=== PATIENT | female | born 1995 | race Caucasian/White ===

== ENCOUNTER 2016-09-30 17:30 | Emergency (ER) | payer OTHER ==
[2016-09-30 17:48] VITALS: BP 149/72; PULSE 95; TEMP 98.1; BMI 27.3
--- NOTE | 2016-09-30 17:57 | PDOC ---
History of Present Illness - General Chief Complaint: Psychiatric Stated Complaint: DEPRESSION/SUICIDAL Time Seen by Provider: 09/30/16 17:47 Past History - Past Medical History Allergies/Adverse Reactions: Allergies fish derived Allergy (Verified 09/30/16 18:18) Itching Penicillins Allergy (Verified 09/30/16 18:18) Difficulty Breathing vancomycin Allergy (Verified 09/30/16 18:18) Difficulty Breathing Home Medications: Ambulatory Orders NK [No Known Home Medication] 07/18/16 - Immunization History Tetanus Status: Unknown - Social History Smoking Status: Never smoked *Physical Exam - Vital Signs Last Vital Signs Temp Pulse Resp BP Pulse Ox 98.1 F 95 H 20 149/72 100 09/30/16 17:39 09/30/16 17:39 09/30/16 17:39 09/30/16 17:39 09/30/16 17:39 *DC/Admit/Observation/Transfer Diagnosis at time of Disposition: Depression - Discharge Dispostion Disposition: HOME Condition at time of disposition: Stable - Referrals Referrals: Marti Conteh MD [Primary Care Provider] - - Patient Instructions Printed Discharge Instructions: Depression Additional Instructions: Please follow-up with your PMD for referral to a psychiatrist. If suicidal thoughts return report to ED immediately
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
== END 2016-09-30 18:22 | disposition home or self-care (01) ==
LOC: JER 17:30
DX: F32.9 Major depressive disorder, single episode, unspecified (principal)
CPT/HCPCS: 99282-25

== ENCOUNTER 2016-10-21 01:54 | Emergency (ER) | payer OTHER ==
[2016-10-21 02:18] VITALS: BP 131/76; PULSE 100; TEMP 98; BMI 24.7
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
== END 2016-10-21 03:54 | disposition home or self-care (01) ==
LOC: JER 01:54
DX: S61.512A Laceration without foreign body of left wrist, initial encounter (principal); X78.8XXA Intentional self-harm by other sharp object, initial encounter; Y93.89 Activity, other specified; Y92.9 Unspecified place or not applicable
CPT/HCPCS: 99281-25

== ENCOUNTER 2016-10-23 18:33 | Emergency (ER) | payer OTHER ==
[2016-10-23 18:49] VITALS: BP 120/61; PULSE 97; TEMP 98; BMI 26.4
--- NOTE | 2016-10-23 19:36 | PDOC ---
Suture Removal/Wound Check HPI - History of Present Illness Chief Complaint: Revisit,Wound Recheck Stated Complaint: SUTURE REMOVAL Time Seen by Provider: 10/23/16 19:25 History Source: Yes: Patient Treated at: [facility] Date of Last ED visit: 10/21/16 - Previous ED Treatment Type of procedure performed on last visit: Yes: Laceration Repair Past History - Past Medical History Allergies/Adverse Reactions: Allergies fish derived Allergy (Verified 10/23/16 18:49) Itching Penicillins Allergy (Verified 10/23/16 18:49) Difficulty Breathing vancomycin Allergy (Verified 10/23/16 18:49) Difficulty Breathing Home Medications: Ambulatory Orders NK [No Known Home Medication] 07/18/16 - Immunization History Immunizations Up to Date: Yes (2012) Tetanus Status: Unknown - Social History Smoking Status: Smoker current status UNK Suture Removal/Wound Check PE - Physical Exam Laceration/Wound Check Symptoms: reports: Pain. denies: Fever, Chills, Redness Current Severity Level: Mild Location of Laceration/Wound: left: Wrist (well healign lac to L wrist, no s/o infxn) *Review of Systems - Review of Systems Constitutional: No: Chills, Fever Integumentary: No: Erythema Medical Decision Making - Medical Decision Making 10/23/16 19:29 21 yo F, seen in ED 2 days ago for lac repair to L wrist and now here for wound check. Denies sig pain and no redness, f/c. Wound appears well healing. Dc w/ f/ u in 8 days for suture removal 10/23/16 19:31 10/23/16 19:36 *DC/Admit/Observation/Transfer Diagnosis at time of Disposition: Visit for wound check - Discharge Dispostion Disposition: HOME Condition at time of disposition: Good - Patient Instructions Additional Instructions: Return for suture removal in 8 days
== END 2016-10-23 19:36 | disposition home or self-care (01) ==
LOC: JERFT 18:33
DX: Z09 Encounter for follow-up examination after completed treatment for conditions other than malignant neoplasm (principal)
CPT/HCPCS: 99281-25

== ENCOUNTER 2016-10-31 20:28 | Emergency (ER) | payer OTHER ==
[2016-10-31 20:41] VITALS: BP 111/77; PULSE 104; TEMP 98.1; BMI 26.4
--- NOTE | 2016-10-31 21:20 | PDOC ---
Suture Removal/Wound Check HPI - History of Present Illness Chief Complaint: Suture/Staple Removal(Here) Stated Complaint: STITCHES REMOVAL Time Seen by Provider: 10/31/16 21:09 History Source: Yes: Patient Exam Limitations: Yes: No Limitations Treated at: [facility] ED Date of Last ED visit: 10/21/16 - Previous ED Treatment Type of procedure performed on last visit: Yes: Laceration Repair Past History - Past Medical History Allergies/Adverse Reactions: Allergies fish derived Allergy (Verified 10/31/16 20:37) Itching Penicillins Allergy (Verified 10/31/16 20:37) Difficulty Breathing vancomycin Allergy (Verified 10/31/16 20:37) Difficulty Breathing Home Medications: Ambulatory Orders Pnv95/Ferrous Fumarate/FA [ Caplet] 1 each PO DAILY 10/31/16 General: Yes: no pertinent history - Immunization History Immunizations Up to Date: Yes (2012) Tetanus Status: Unknown - Social History Smoking Status: Never smoked Suture Removal/Wound Check PE - Physical Exam Laceration/Wound Check Symptoms: reports: None Comments: 10/31/16 21:20 left inner wrist with well healed laceration, simple interrupted sutures removed without diffuculty Procedures - Additional Procedures Progress: 10/31/16 21:21 sutures removed 8 simple interrupted sutures removed Medical Decision Making - Medical Decision Making 10/31/16 21:21 suture removal *DC/Admit/Observation/Transfer Diagnosis at time of Disposition: Visit for suture removal - Discharge Dispostion Disposition: HOME Condition at time of disposition: Good - Referrals Referrals: Guilherme Benavidez MD [Primary Care Provider] - - Patient Instructions Printed Discharge Instructions: DI for Suture Removal Additional Instructions: keep clean and dry
== END 2016-10-31 21:38 | disposition home or self-care (01) ==
LOC: JERFT 20:28
DX: Z48.01 Encounter for change or removal of surgical wound dressing (principal)
CPT/HCPCS: 99281-25

== ENCOUNTER 2016-11-13 23:37 | Emergency (ER) | payer OTHER ==
--- NOTE | 2016-11-14 00:34 | PDOC ---
History of Present Illness - History of Present Illness Initial Comments: 11/14/16 01:51 The patient is a 21 year old female, , with a significant past medical history of molar s/p D&C (May 2016), who presents to the emergency department with nausea, vomiting, and suprapubic abdominal pain today. The patient states she saw her BELL SPINNER two days ago and had an ultrasound that was normal, however, her symptoms today are concerning her for another molar . The patient states her suprapubic pain radiates to her back. The patient also reports having two miscarriages in the past. She denies chest pain, shortness of breath, headache and dizziness. She denies fever, chills, diarrhea and constipation. She denies dysuria, frequency, urgency and hematuria. Allergies: vancomycin and penicillin BELL SPINNER: Dr. Marie <Mikaela Lopez - Last Filed: 11/14/16 02:38> <Lori Fonseca - Last Filed: 11/14/16 03:09> - General Chief Complaint: Pain, Acute Stated Complaint: ABDOMINAL PAIN/8 WKS Time Seen by Provider: 11/14/16 00:12 Past History <Mikaela Lopez - Last Filed: 11/14/16 02:38> - Past Medical History Anemia: No Asthma: No Cancer: No Cardiac Disorders: No CVA: No COPD: No CHF: No Dementia: No Diabetes: No GI Disorders: Yes (Gastritis) Disorders: No HTN: No Hypercholesterolemia: No Liver Disease: No Seizures: No Thyroid Disease: No - Surgical History Abdominal Surgery: Yes (pyloric stenosis) Appendectomy: No Cardiac Surgery: No Cholecystectomy: No Lung Surgery: No Neurologic Surgery: No Orthopedic Surgery: No - Immunization History Immunization Up to Date: Yes (2012) - Psycho/Social/Smoking Cessation Hx Anxiety: No Suicidal Ideation: No Smoking History: Never smoked Have you smoked in the past 12 months: No Hx Alcohol Use: No Drug/Substance Use Hx: No Substance Use Type: None Hx Substance Use Treatment: No <Lori Fonseca - Last Filed: 11/14/16 03:09> - Past Medical History Allergies/Adverse Reactions: Allergies Allergy/AdvReac Type Severity Reaction Status Date / Time fish derived Allergy Itching Verified 11/14/16 00:28 Penicillins Allergy Difficulty Verified 11/14/16 00:28 Breathing vancomycin Allergy Difficulty Verified 11/14/16 00:28 Breathing Home Medications: Ambulatory Orders Pnv95/Iron Fum/Folic Acid [ [place]] 1 each PO DAILY 10/31/16 Review of Systems - Review of Systems Able to Perform ROS?: Yes Comments:: 11/14/16 01:54 CONSTITUTIONAL: Absent: fever, chills, diaphoresis, generalized weakness, malaise, loss of appetite HEENT: Absent: rhinorrhea, nasal congestion, throat pain, throat swelling, difficulty swallowing, mouth swelling, ear pain, eye pain, visual Changes CARDIOVASCULAR: Absent: chest pain, syncope, palpitations, irregular heart rate, lightheadedness , peripheral edema RESPIRATORY: Absent: cough, shortness of breath, dyspnea with exertion, orthopnea, wheezing, stridor, hemoptysis GASTROINTESTINAL: (+) suprapubic abdominal pain, nausea, vomiting. Absent: abdominal distension, diarrhea, constipation, melena, hematochezia GENITOURINARY: Absent: dysuria, frequency, urgency, hesitancy, hematuria, flank pain, genital pain MUSCULOSKELETAL: Absent: myalgia, arthralgia, joint swelling SKIN: Absent: rash, itching, pallor HEMATOLOGIC/IMMUNOLOGIC: Absent: easy bleeding, easy bruising, lymphadenopathy, frequent infections ENDOCRINE: Absent: unexplained weight gain, unexplained weight loss, heat intolerance, cold intolerance NEUROLOGIC: Absent: headache, focal weakness or paresthesias, dizziness, unsteady gait, seizure, mental status changes, bladder or bowel incontinence PSYCHIATRIC: Absent: anxiety, depression, suicidal or homicidal ideation, hallucinations. <Mikaela Lopez - Last Filed: 11/14/16 02:38> *Physical Exam - Vital Signs Last Vital Signs Temp Pulse Resp BP Pulse Ox 98.6 F 93 H 18 107/62 98 11/14/16 00:29 11/14/16 00:29 11/14/16 00:29 11/14/16 00:29 11/14/16 00:29 - Physical Exam Comments: 11/14/16 01:55 GENERAL: Well developed, well nourished. Awake and alert. No acute distress. HEENT: Normocephalic, atraumatic. PERRLA, EOMI. No conjunctival pallor. Sclera are non- icteric. Moist mucous membranes. Oropharynx is clear. NECK: Supple. Full ROM. No JVD. Carotid pulses 2+ and symmetric, without bruits. No thyromegaly. No lymphadenopathy. CARDIOVASCULAR: Regular rate and rhythm. No murmurs, rubs, or gallops. Distal pulses are 2+ and symmetric. PULMONARY: No evidence of respiratory distress. Lungs clear to auscultation bilaterally. No wheezing, rales or rhonchi. ABDOMINAL: Soft. Non-tender. Non-distended. No rebound or guarding. No organomegaly. Normoactive bowel sounds. MUSCULOSKELETAL Normal range of motion at all joints. No bony deformities or tenderness. No CVA tenderness. EXTREMITIES: No cyanosis. No clubbing. No edema. No calf tenderness. SKIN: Warm and dry. Normal capillary refill. No rashes. No jaundice. NEUROLOGICAL: Alert, awake, appropriate. Cranial nerves 2-12 intact. Normoreflexic in the upper and lower extremities. Normal speech. Toes are down-going bilaterally. Gait is normal without ataxia. PSYCHIATRIC: Cooperative. Good eye contact. Appropriate mood and affect. <Mikaela Lopez - Last Filed: 11/14/16 02:38> - Vital Signs Last Vital Signs Temp Pulse Resp BP Pulse Ox 98.6 F 93 H 18 107/62 98 11/14/16 00:29 11/14/16 00:29 11/14/16 00:29 11/14/16 00:29 11/14/16 00:29 <Lori Fonseca - Last Filed: 11/14/16 03:09> ED Treatment Course - LABORATORY CBC & Chemistry Diagram: 11/14/16 00:28 11/14/16 00:28 - ADDITIONAL ORDERS Additional order review: Laboratory Results 11/14/16 11/14/16 00:28 00:28 Sodium 139 Potassium 4.2 Chloride 104 Carbon Dioxide 24 Anion Gap 11 BUN 6 L Creatinine 0.5 L Creat Clearance w eGFR > 60 Random Glucose 84 Calcium 9.3 Total Bilirubin 0.4 D AST 8 L ALT 11 L D Alkaline Phosphatase 64 Total Protein 7.2 Albumin 4.0 Urine Color Yellow Urine Appearance Slcloudy Urine pH 6.0 Ur Specific [place] 1.017 Urine Protein Negative Urine Glucose (UA) Negative Urine Ketones 1+ H Urine Blood Negative Urine Nitrite Negative Urine Bilirubin Negative Urine Urobilinogen Negative Ur Leukocyte Esterase 3+ H Urine RBC 3 Urine WBC 32 Ur Epithelial Cells Few Urine Bacteria Moderate Hyaline Casts 3 Urine Mucus Many 11/14/16 00:28 RBC 4.49 MCV 82.9 MCHC 34.1 RDW 13.6 MPV 8.3 Neutrophils % 81.5 Lymphocytes % 10.3 Monocytes % 6.9 Eosinophils % 1.1 D Basophils % 0.2 - RADIOLOGY Radiograph Interpretation: 11/14/16 02:39 EXAM: Ultrasound OB less than 14 weeks transabdominal and ultrasound OB less than 14 weeks transvaginal and ultrasound color duplex were read by Galo Hood MD at 02:32 DATE AND TIME: 2016-11-14 01:29:50.0 REASON FOR EXAM: 21-year-old female with pelvic pain, 8 weeks . FINDINGS: Within the endometrium there is a gestational sac yolk sac and pole. [place]-rump length measurement equals 7 weeks 3 days. heart motion 139 beats per minute. Estimated date of delivery June 30, 2017. The uterus measures 8.8 x 6.5 x 6.5 cm. There is no evidence of myometrial masses. The right ovary measures 2.7 x 1.6 x 1.3 cm. There are no right ovarian masses. The left ovary measures 3.7 x 2.5 x 3.6 cm. There are no left ovarian masses. There is no free fluid in the pelvis. COLOR DUPLEX: There is satisfactory perfusion to both the left and right ovary with normal appearing arterial and venous spectral waveforms. IMPRESSION: Single living intrauterine fetus estimated gestational age 7 weeks 3 days. No evidence of ovarian torsion. - Medications Given in the ED: ED Medications Discontinued Medications Generic Name Dose Route Start Last Admin Trade Name Freq PRN Reason Stop Dose Admin Sodium Chloride 1,000 mls @ 1,000 mls/hr 11/14/16 00:42 11/14/16 01:04 Normal Saline - IV 11/14/16 01:41 1,000 mls/hr ASDIR STA Administration Ondansetron HCl 4 mg 11/14/16 00:42 11/14/16 00:56 Zofran Injection IVPB 11/14/16 00:43 Not Given ONCE ONE <Mikaela Lopez - Last Filed: 11/14/16 02:38> - LABORATORY CBC & Chemistry Diagram: 11/14/16 00:28 11/14/16 00:28 <Lori Fonseca - Last Filed: 11/14/16 03:09> Medical Decision Making - Medical Decision Making 11/14/16 03:02 21 yo female p/w hyperemesis and some pelvic discomfort.pt states she knows she has a uti and has taken ABX for 2 days -she saw Dr Marie on Monday who started her on an antibiotics that she takes twice a day-she does not recall the name of it -pelvic US show SL IUP 7weeks 3 days -pt's vomiting resolved imp hyperemesis/uti <Lori Fonseca - Last Filed: 11/14/16 03:09> *DC/Admit/Observation/Transfer - Attestations Scribe Attestion: 11/14/16 01:56 Documentation prepared by Mikaela Lopez, acting as behavioral medical director for Lori Fonseca MD <Mikaela Lopez - Last Filed: 11/14/16 02:38> <Lori Fonseca - Last Filed: 11/14/16 03:09> Diagnosis at time of Disposition: Hyperemesis gravidarum UTI (urinary tract infection) Qualifiers: Urinary tract infection type: site unspecified Hematuria presence: without hematuria Qualified Code(s): N39.0 - Urinary tract infection, site not specified - Discharge Dispostion Disposition: HOME Condition at time of disposition: Stable - Referrals Referrals: STAFF,NOT ON [Primary Care Provider] - - Patient Instructions Printed Discharge Instructions: DI for Hyperemesis Gravidarum, DI for Urinary Tract Infection (UTI) Additional Instructions: please finish your antibiotics that your technical program manager started you on and continue your care with your technical program manager - Post Discharge Activity Work/School Note: Back to Work
[2016-11-14] MEDS ORDERED: SODIUM CHLORIDE 1,000 ML IV STA (00:42)
[2016-11-14] MEDS ORDERED: ONDANSETRON 4 MG/2 ML VIAL IVPB ONE (00:42)
[2016-11-14 00:59] LABS: URINE APPEARANCE SLCLOUDY; URINE BILIRUBIN NEGATIVE (NEGATIVE); URINE BLOOD NEGATIVE (NEGATIVE); URINE COLOR YELLOW; URINE GLUCOSE (UA) NEGATIVE (NEGATIVE); URINE KETONE 1+ (NEGATIVE); URINE NITRITE NEGATIVE (NEGATIVE); URINE PROTEIN NEGATIVE (NEGATIVE); URINE UROBILINOGEN NEGATIVE E.U./dl (0.2-1.0)
[2016-11-14 01:13] LABS: URINE LEUK ESTERASE 3+ (NEGATIVE)
[2016-11-14 01:15] VITALS: TEMP 98.6; BMI 26.4
[2016-11-14 01:15] LABS: BASOPHIL 0.2 % (0-2.0); EOSINOPHIL 1.1 % (0-4.5); MCH 28.3 pg (25.7-33.7); MCHC 34.1 g/dl (32.0-36.0); MEAN CELL VOLUME 82.9 fl (80-96); MEAN PLT VOLUME 8.3 fl (7.5-11.1); NEUTROPHILS 81.5 % (42.8-82.8); PLATELET COUNT 241 K/MM3 (134-434); RDW 13.6 % (11.6-15.6); WHITE BLOOD COUNT 9.2 K/mm3 (4.0-10.0)
[2016-11-14 01:22] LABS: URINE BACTERIA MODERATE /hpf (NONE SEEN); URINE HYALINE CAST 3 /lpf; URINE MUCUS MANY; URINE RBC 3 /hpf (0-3); URINE WBC 32 /hpf (3-5)
[2016-11-14 01:41] LABS: ANION GAP 11 (8-16); BILIRUBIN,TOTAL 0.4 mg/dL (0.2-1.0); CALCIUM 9.3 mg/dL (8.5-10.1); CO2 24 mmol/L (21-32); CREATININE 0.5 mg/dL (0.55-1.02); GLUCOSE,RANDOM 84 mg/dL (74-106); SGOT/AST 8 U/L (15-37); TOT PROT 7.2 g/dl (6.4-8.2)
[2016-11-14 01:44] LABS: ALK PHOS 64 U/L (45-117); SGPT/ALT 11 U/L (12-78)
[2016-11-14 03:24] VITALS: BP 94/63; PULSE 75
== END 2016-11-14 03:23 | disposition home or self-care (01) ==
LOC: JER 23:37
PROC: 3E0337Z Introduction of Electrolytic and Water Balance Substance into Peripheral Vein, Percutaneous Approach (ICD-10-PCS; principal; 2016-11-13)
DX: O21.0 Mild hyperemesis gravidarum (principal); O23.41 Unspecified infection of urinary tract in pregnancy, first trimester; Z3A.01 Less than 8 weeks gestation of pregnancy
CPT/HCPCS: 36415; 76817-TC; 80053; 81003; 81015; 84702; 85025; 96360; 99282-25

== ENCOUNTER 2019-02-17 19:04 | Emergency (ER) | payer OTHER | END 2019-02-17 20:42 | disposition home or self-care (01) | LOC: JER 19:04 ==

== ENCOUNTER 2019-06-09 20:09 | Emergency (ER) | payer OTHER | END 2019-06-09 21:33 | disposition home or self-care (01) | LOC: JERFT 20:09 ==

== ENCOUNTER 2019-11-27 09:36 | Emergency (ER) | payer OTHER ==
[2019-11-27 09:42] VITALS: BP 109/70; BMI 27.0
[2019-11-27] MEDS ORDERED: ONDANSETRON 4 MG TABLET PO ONE ×2 (09:56→11:06)
--- NOTE | 2019-11-27 10:00 | PDOC ---
History of Present Illness - General Chief Complaint: Nausea/Vomiting Stated Complaint: WEAK/VOMITING Time Seen by Provider: 11/27/19 09:44 History Source: Patient - History of Present Illness Timing/Duration: reports: other (yesterday) Past History - Past Medical History Allergies/Adverse Reactions: Allergies Allergy/AdvReac Type Severity Reaction Status Date / Time fish derived Allergy Itching Verified 11/27/19 09:42 Penicillins Allergy Difficulty Verified 11/27/19 09:42 Breathing vancomycin Allergy Difficulty Verified 11/27/19 09:42 Breathing Home Medications: Ambulatory Orders Ondansetron [Zofran *Odt*] 4 mg SL Q8H #12 od.tablet 11/27/19 Anemia: No Asthma: No Cancer: No Cardiac Disorders: No CVA: No COPD: No CHF: No Dementia: No Diabetes: No GI Disorders: Yes (Gastritis) Disorders: No HTN: No Hypercholesterolemia: No Liver Disease: No Seizures: No Thyroid Disease: No - Surgical History Abdominal Surgery: Yes (pyloric stenosis) Appendectomy: No Cardiac Surgery: No Cholecystectomy: No Lung Surgery: No Neurologic Surgery: No Orthopedic Surgery: No - Immunization History Immunization Up to Date: Yes (2017) - Psycho Social/Smoking Cessation Hx Smoking History: Never smoked Have you smoked in the past 12 months: No Information on smoking cessation initiated: No Hx Alcohol Use: No Drug/Substance Use Hx: No Substance Use Type: None Hx Substance Use Treatment: No Review of Systems - Review of Systems Constitutional: Yes: Fever HEENTM: No: Ear Pain, Throat Pain Respiratory: No: Cough ABD/GI: Yes: Nausea, Vomiting. No: Diarrhea, Abdominal cramping : No: Burning, Dysuria, Flank Pain, Hematuria *Physical Exam - Vital Signs Last Vital Signs Temp Pulse Resp BP Pulse Ox 98.1 F 111 H 17 109/70 100 11/27/19 09:37 11/27/19 09:37 11/27/19 09:37 11/27/19 09:37 11/27/19 09:37 - Physical Exam General Appearance: Yes: Appropriately Dressed. No: Apparent Distress HEENT: positive: Normal ENT Inspection, Normal Voice, TMs Normal, Pharynx Normal. negative: Scleral Icterus (R), Scleral Icterus (L) Neck: positive: Supple Respiratory/Chest: positive: Lungs Clear, Normal Breath Sounds. negative: Respiratory Distress Cardiovascular: positive: Regular Rate, S1, S2 Gastrointestinal/Abdominal: positive: Soft. negative: Tender Musculoskeletal: negative: CVA Tenderness Integumentary: positive: Dry, Warm Neurologic: positive: Fully Oriented, Alert, Normal Mood/Affect Medical Decision Making - Medical Decision Making 11/27/19 09:56 24-year-old female, no significant history, here with low-grade fever with nausea vomiting since last night. No bodyaches, headache, sore throat ear pain or cough. Denies abdominal pain, diarrhea or dysuria. No unusual food sick contacts or recent travel. see exam ?viral illness, r/o f/u and preg Tachy to 11 w/ unremarkable exam otherwise -dose of zofran given in facility>po trial 11/27/19 10:39 Pt able to tolerate p.o. after dose of Zofran. Heart rate normalized to 97. FLU neg. UA unremarkable and test negative Discharge - Discharge Information Problems reviewed: Yes Clinical Impression/Diagnosis: Fever Qualifiers: Fever type: unspecified Qualified Code(s): R50.9 - Fever, unspecified Nausea and vomiting Qualifiers: Vomiting type: unspecified Vomiting Intractability: non-intractable Qualified Code(s): R11.2 - Nausea with vomiting, unspecified Condition: Improved Disposition: HOME - Additional Discharge Information Prescriptions: Ondansetron [Zofran *Odt*] 4 mg SL Q8H #12 od.tablet - Follow up/Referral Referrals: David Kemp MD [Primary Care Provider] - - Patient Discharge Instructions Patient Printed Discharge Instructions: DI for Vomiting -- Adult Additional Instructions: Cause of your symptoms are unclear at this time but might be viral. Your flu and urine were negative and you are not Take medications as directed and return for any worsening of symptoms waiting - Post Discharge Activity Work/Back to School Note: Back to Work
[2019-11-27 10:33] LABS: EPI CELLS 7.9 /HPF (0-5/HPF); HYALINE CASTS 13 /lpf (0-8); URINE APPEARANCE CLEAR; URINE BACTERIA 98.1 /hpf (NEGATIVE); URINE BILIRUBIN NEGATIVE (NEGATIVE); URINE COLOR YELLOW; URINE GLUCOSE (UA) NEGATIVE (NEGATIVE); URINE KETONE TRACE (NEGATIVE); URINE LEUK ESTERASE TRACE (NEGATIVE); URINE NITRITE NEGATIVE (NEGATIVE); URINE PROTEIN TRACE (NEGATIVE); URINE RBC 1 /hpf (0-4); URINE WBC 7 /hpf (0-5)
[2019-11-27 10:45] VITALS: PULSE 97; TEMP 97.1
== END 2019-11-27 11:10 | disposition home or self-care (01) ==
LOC: JERFT 09:36
DX: R11.2 Nausea with vomiting, unspecified (principal); R50.9 Fever, unspecified; Z91.013 Allergy to seafood; Z88.0 Allergy status to penicillin; Z88.8 Allergy status to other drugs, medicaments and biological substances
CPT/HCPCS: 81003; 84703; 87086; 87804; 99283-25

== ENCOUNTER 2020-03-29 00:36 | Emergency (ER) | payer OTHER ==
--- NOTE | 2020-03-29 01:07 | PDOC ---
History of Present Illness - General Stated Complaint: HAND LACERATION Time Seen by Provider: 03/29/20 00:55 - History of Present Illness Initial Comments: Poncho Nascimento is a 24 y/o female with no significant PMH presenting today after a cut to her right second MCP at 1pm today. Reports that she was cleaning when she cut her hand and bumped it against a piece of wood. Reports mild bleeding and laceration which she covered with a bandage. Reports that her 2nd MCP joint became increasingly swollen and subsequently decided to present to the ED. No fever/chills. No shortness of breath. No active bleeding or discharge from the wound. Wound appears well healed and scabbed over. Past History - Medical History Allergies/Adverse Reactions: Allergies Allergy/AdvReac Type Severity Reaction Status Date / Time fish derived Allergy Itching Verified 11/27/19 09:42 Penicillins Allergy Difficulty Verified 11/27/19 09:42 Breathing vancomycin Allergy Difficulty Verified 11/27/19 09:42 Breathing Home Medications: Ambulatory Orders Ondansetron [Zofran *Odt*] 4 mg SL Q8H #12 od.tablet 11/27/19 Clindamycin [Cleocin -] 300 mg PO Q6HPO #28 capsule 03/29/20 Clindamycin [Cleocin -] 300 mg PO Q6HPO #28 capsule 03/29/20 Anemia: No Asthma: No Cancer: No Cardiac Disorders: No CVA: No COPD: No CHF: No Dementia: No Diabetes: No GI Disorders: Yes (Gastritis) Disorders: No HTN: No Hypercholesterolemia: No Liver Disease: No Seizures: No Thyroid Disease: No - Surgical History Abdominal Surgery: Yes (pyloric stenosis) Appendectomy: No Cardiac Surgery: No Cholecystectomy: No Lung Surgery: No Neurologic Surgery: No Orthopedic Surgery: No - Immunization History Immunization Up to Date: Yes (2017) - Psycho-Social/Smoking History Smoking History: Never smoked Have you smoked in the past 12 months: No Review of Systems - Review of Systems Comments:: GENERAL/CONSTITUTIONAL: No fever or chills. No weakness._ HEAD, EYES, EARS, NOSE AND THROAT: No change in vision. No change in hearing. No sore throat._ CARDIOVASCULAR: No chest pain or shortness of breath_ RESPIRATORY: Denies cough, hemoptysis_ GASTROINTESTINAL: No nausea, vomiting, diarrhea or constipation._ GENITOURINARY: No dysuria, frequency, or change in urination._ MUSCULOSKELETAL: Reports well healed laceration over 2nd MCP joint with associated TTP. No neck or back pain._ SKIN: No rash_ NEUROLOGIC: No headache, vertigo, loss of consciousness, or change in strength/sensation._ ENDOCRINE: No increased thirst. No abnormal weight change_ HEMATOLOGIC/LYMPHATIC: No anemia, easy bleeding, or history of blood clots._ ALLERGIC/IMMUNOLOGIC: No hives or skin allergy._ *Physical Exam - Physical Exam GENERAL: Awake, alert, and oriented to person/place/time, in no acute distress_ HEAD: No signs of trauma, normocephalic, atraumatic _ EYES: PERRLA, EOMI, sclera anicteric, conjunctiva clear_ ENT: Hearing grossly normal, nares patent, oropharynx clear without exudates. No uvular deviation. Moist mucosa_ NECK: Normal ROM, supple, no lymphadenopathy, JVD, or masses_ LUNGS: No distress, speaks in full sentences, clear to auscultation bilaterally _ HEART: Regular rate and rhythm, normal S1 and S2, no murmurs appreciated, peripheral pulses normal and equal bilaterally._ ABDOMEN: Soft, nontender, normoactive bowel sounds. No guarding, no rebound. No masses_ EXTREMITIES: Normal inspection, Normal range of motion, no edema. No clubbing or cyanosis_ RUE: Inspection: No erythema or ecchymosis. No tenderness, no obvious abnormalities, no open wounds. Well healed and scabbed 1 cm laceration over right 2nd MCP joint. Mild TTP over right 2nd MCP joint. Compartments soft and compressible, pain within proportion, no pain to passive stretch Sensation: sensation present to light touch m/r/u n Motor: intact AIN/PIN/Ulnar in hand; 5/5 Wrist flex/ext; 5/5 Elbow flex/ext; 5/5 Shoulder ABd,Flex Vascular: 2+ radial pulse palpated, BCR all fingers <2 sec. NEUROLOGICAL: Cranial nerves II through XII grossly intact. Normal speech, normal gait, no focal sensorimotor deficits _ SKIN: Warm, Dry, normal turgor, no rashes or lesions noted_ ED Treatment Course - LABORATORY CBC & Chemistry Diagram: 03/29/20 01:50 Medical Decision Making - Medical Decision Making 03/29/20 01:15 24F no PMH presenting today s/p hitting her right hand while cleaning. Well healed and scabbed 1cm wound over the 2nd MCP joint. Normal hand exam. Mild TTP over 2nd MCP joint. Last tetanus 2 years ago. -XR right hand 03/29/20 01:36 XR shows no obvious fracture or dislocation of the 2nd MCP joint on the right hand. Plan to d/c home. All questions answered. Return precautions given. Pt verbalize understanding and agreement with plan. Discharge - Discharge Information Problems reviewed: Yes Clinical Impression/Diagnosis: Laceration, Joint swelling Condition: Stable - Admission No - Additional Discharge Information Prescriptions: Clindamycin [Cleocin -] 300 mg PO Q6HPO #28 capsule Clindamycin [Cleocin -] 300 mg PO Q6HPO #28 capsule - Follow up/Referral Referrals: David Kemp MD [Primary Care Provider] - Richard Ho MD [Staff Physician] - - Patient Discharge Instructions Additional Instructions: Please make a follow up appointment with your primary care doctor. Please make a follow up appointment with a hand specialist (Dr. Ho, referral provided here). Please take Clindamycin four times a day for 7 days. If you experience any new, worsening ,or concerning symptoms, including worsening pain, bleeding or discharge from the wound, fever, chills, or any other concerns, pleaes return to the emergency department. - Post Discharge Activity
[2020-03-29 01:18] VITALS: BP 132/82; PULSE 79; TEMP 98.4; BMI 26.2
[2020-03-29] MEDS ORDERED: CLINDAMYCIN HCL 150 MG CAPSULE (FP) PO ONE (01:36)
[2020-03-29] MEDS ORDERED: CLINDAMYCIN HCL 150 MG CAPSULE (FP) ONE (01:43)
[2020-03-29 02:12] LABS: BASO % 0.6 % (0-2.0); EOS % 2.5 % (0-4.5); HEMATOCRIT 39.3 % (32.4-45.2); HEMOGLOBIN 13.1 GM/dL (10.7-15.3); LYMPH % 25.1 % (8-40); MCH 28.4 pg (25.7-33.7); MCHC 33.3 g/dl (32.0-36.0); MEAN CELL VOLUME 85.3 fl (80-96); MONO % 7.9 % (3.8-10.2); NEUT % 63.9 % (42.8-82.8); PLATELET COUNT 315 K/MM3 (134-434); RDW 13.3 % (11.6-15.6); WHITE BLOOD COUNT 11.4 K/mm3 (4.0-10.0)
--- NOTE | 2020-04-11 02:08 | PDOC ---
Documentation entered by Vera Gonzalez SCRIBE, acting as scribe for Jayshree Green MD. Jayshree Green MD: This documentation has been prepared by the Carlos ackerman Nirvannie, SCRIBE, under my direction and personally reviewed by me in its entirety. I confirm that the documentation accurately reflects all work, treatment, procedures, and medical decision making performed by me. Attending Attestation - Resident Resident Name: YovanyAngel - ED Attending Attestation I have performed the following: I have examined & evaluated the patient, The case was reviewed & discussed with the resident, I agree w/resident's findings & plan, Exceptions are as noted - HPI HPI: 03/29/20 01:32 The patient is a 24 year old female with no significant past medical history who presents to the ED with a cut to the right second finger with associated pain. As per patient, she was cleaning at 1pm today at which time she bumped her hand on wood onsetting bleeding and pain. She notes putting on a bandaid but endorses swelling and pain prompting her arrival to the ED. She denies any active bleeding. Allergies: Fish derived. PCN, Vancomycin - Physicial Exam PE: 03/29/20 01:46 GENERAL: Awake, alert, and fully oriented, in no acute distress HEAD: No signs of trauma EYES: PERRLA, EOMI, sclera anicteric, conjunctiva clear ENT: Auricles normal inspection, hearing grossly normal, nares patent, oropharynx clear without exudates. Moist mucosa NECK: Normal ROM, supple, no lymphadenopathy, JVD, or masses LUNGS: Breath sounds equal, clear to auscultation bilaterally. No wheezes, and no crackles HEART: Regular rate and rhythm, normal S1 and S2, no murmurs, rubs or gallops ABDOMEN: Soft, nontender, normoactive bowel sounds. No guarding, no rebound. No masses EXTREMITIES:Normal range of motion, no edema. No clubbing or cyanosis. No cords, erythema, or tenderness NEUROLOGICAL: Cranial nerves II through XII grossly intact. Normal speech SKIN: +1cm angled laceration to the right 2nd MCP with surrounding erythema. Warm, Dry, normal turgor, - Medical Decision Making 03/29/20 02:18 WBC 11; no left shift; pt will be sent home with clindamycin, as she is PCN allergic and vancomycin allergy Discharge - Discharge Information Problems reviewed: Yes Clinical Impression/Diagnosis: Laceration, Joint swelling Condition: Stable Disposition: HOME - Additional Discharge Information Prescriptions: Clindamycin [Cleocin -] 300 mg PO Q6HPO #28 capsule Clindamycin [Cleocin -] 300 mg PO Q6HPO #28 capsule - Follow up/Referral Referrals: Richard Ho MD [Staff Physician] - David Kemp MD [Primary Care Provider] - - Patient Discharge Instructions Additional Instructions: Please make a follow up appointment with your primary care doctor. Please make a follow up appointment with a hand specialist (Dr. Ho, referral provided here). Please take Clindamycin four times a day for 7 days. If you experience any new, worsening ,or concerning symptoms, including worsening pain, bleeding or discharge from the wound, fever, chills, or any other concerns, pleaes return to the emergency department. - Post Discharge Activity
== END 2020-03-29 02:25 | disposition home or self-care (01) ==
LOC: JER 00:36
DX: S61.411A Laceration without foreign body of right hand, initial encounter (principal); M25.441 Effusion, right hand
CPT/HCPCS: 36415; 73110-TC-RT-FY; 73130-TC-RT-FY; 85025; 86140; 99284-25

== ENCOUNTER 2020-09-16 08:37 | Inpatient (IN) | payer OTHER ==
[2020-09-16] MEDS ORDERED: SODIUM CHLORIDE 0.9% 500 ML INFUS.BAG IV ONE (09:20)
[2020-09-16 10:02] LABS: BASO % 0.1 % (0-2.0); EOS % 0.9 % (0-4.5); HEMATOCRIT 41.2 % (32.4-45.2); HEMOGLOBIN 13.6 GM/dL (10.7-15.3); LYMPH % 10.9 % (8-40); MEAN CELL VOLUME 84.9 fl (80-96); MEAN PLT VOLUME 8.2 fl (7.5-11.1); MONO % 5.6 % (3.8-10.2); NEUT % 82.5 % (42.8-82.8); PLATELET COUNT 347 K/MM3 (134-434); RBC 4.85 M/mm3 (3.60-5.2); RDW 13.4 % (11.6-15.6); WHITE BLOOD COUNT 13.9 K/mm3 (4.0-10.0)
[2020-09-16 10:30] LABS: CALCIUM 9.5 mg/dL (8.5-10.1)
[2020-09-16 10:31] LABS: ALBUMIN 4.1 g/dl (3.4-5.0); BLOOD UREA NITROGEN 9.1 mg/dL (7-18)
[2020-09-16 10:34] LABS: CREATININE 0.7 mg/dL (0.55-1.3)
[2020-09-16 10:36] LABS: TOT PROT 7.7 g/dl (6.4-8.2)
[2020-09-16 10:47] LABS: URINE APPEARANCE CLEAR; URINE BILIRUBIN NEGATIVE (NEGATIVE); URINE COLOR YELLOW; URINE GLUCOSE (UA) NEGATIVE (NEGATIVE); URINE KETONE 3+ (NEGATIVE); URINE LEUK ESTERASE NEGATIVE (NEGATIVE); URINE NITRITE NEGATIVE (NEGATIVE); URINE PROTEIN NEGATIVE (NEGATIVE)
[2020-09-16] MEDS ORDERED: LACTATED RINGERS SOLUTION 1,000 ML/1,000 ML INFUS.BAG IV STA (12:52)
[2020-09-16] MEDS ORDERED: LIDOCAINE HCL 2% JELLY 10 ML CARTRIDGE ONE (15:12)
[2020-09-16] MEDS ORDERED: morphine CARPU-JECT 2 MG/1 ML DISP.SYRIN IVPUSH ONE (16:06)
[2020-09-16] MEDS ORDERED: ACETAMINOPHEN 1000 MG/100 ML BAG IVPB PRN (17:16)
[2020-09-16 20:59] VITALS: BMI 28.3
[2020-09-16] MEDS: D5-1/2NS+10 MEQ KCL - 10 MEQ/1,000 ML INFUS.BAG IV SCH (21:04)
[2020-09-16] MEDS: FAMOTIDINE 20 MG/50 ML IVPB 20 MG/50 ML MG IVPB SCH (22:24)
[2020-09-16] MEDS: HEPARIN NA (PORCINE) 5,000 UNITS/ML 1ML VIAL SQ SCH (22:25)
[2020-09-17] MEDS: HEPARIN NA (PORCINE) 5,000 UNITS/ML 1ML VIAL SQ SCH ×2 (06:06→13:23)
[2020-09-17 08:18] LABS: HEMATOCRIT 34.3 % (32.4-45.2); HEMOGLOBIN 11.7 GM/dL (10.7-15.3); MCH 28.7 pg (25.7-33.7); MEAN CELL VOLUME 84.4 fl (80-96); PLATELET COUNT 269 K/MM3 (134-434); RBC 4.06 M/mm3 (3.60-5.2); RDW 13.2 % (11.6-15.6); WHITE BLOOD COUNT 6.3 K/mm3 (4.0-10.0)
[2020-09-17 08:28] LABS: INR 1.15 (0.83-1.09); PROTHROMBIN TIME (PATIENT) 13.9 SEC (9.7-13.0)
[2020-09-17 08:30] LABS: ACTIVATED PTT 31.1 SECONDS (25.2-36.5)
[2020-09-17 08:58] LABS: ALBUMIN 3.3 g/dl (3.4-5.0); BLOOD UREA NITROGEN 4.8 mg/dL (7-18); CALCIUM 8.4 mg/dL (8.5-10.1); MAGNESIUM 2.1 mg/dL (1.8-2.4)
[2020-09-17 09:01] LABS: CREATININE 0.5 mg/dL (0.55-1.3)
[2020-09-17 09:03] LABS: BILIRUBIN,TOTAL 1.5 mg/dL (0.2-1); TOT PROT 5.8 g/dl (6.4-8.2)
[2020-09-17] MEDS: FAMOTIDINE 20 MG/50 ML IVPB 20 MG/50 ML MG IVPB SCH (09:54)
[2020-09-17] MEDS: D5-1/2NS+10 MEQ KCL - 10 MEQ/1,000 ML INFUS.BAG IV SCH (11:06)
[2020-09-17 14:29] VITALS: BP 117/70; PULSE 97; TEMP 98.8
== END 2020-09-17 17:55 | disposition home or self-care (01) | DRG 247 ==
LOC: JER 08:37 → JERBED 17:45 → J7W 19:58
PROVIDERS: ATTEND Internal Medicine
DX: K56.609 Unspecified intestinal obstruction, unspecified as to partial versus complete obstruction (principal); R10.12 Left upper quadrant pain; K21.9 Gastro-esophageal reflux disease without esophagitis; F32.9 Major depressive disorder, single episode, unspecified; Q40.0 Congenital hypertrophic pyloric stenosis
CPT/HCPCS: 36415; 71046-TC-FY; 74019-TC-FY; 74176-TC; 80053; 81003; 83690; 83735; 84100; 84132; 84703; 85025; 85027; 85610; 85730; 87086; 93005; 93010; 99284-25; 99285-25; C9803; J0131; J1644; U0003

== ENCOUNTER 2020-10-20 19:05 | Emergency (ER) | payer OTHER ==
[2020-10-20 19:12] VITALS: BP 125/75; PULSE 126; TEMP 98; BMI 29.2
[2020-10-20] MEDS ORDERED: METOCLOPRAMIDE HCL INJECTION 10 MG/2 ML VIAL IVPUSH ONE (19:21)
[2020-10-20] MEDS ORDERED: SODIUM CHLORIDE 1,000 ML IV STA ×2 (19:21→23:14)
[2020-10-20] MEDS ORDERED: PANTOPRAZOLE SODIUM 40 MG VIAL IVPUSH ONE (19:46)
[2020-10-20] MEDS ORDERED: PANTOPRAZOLE SODIUM 40 MG VIAL ONE (20:27)
[2020-10-20] MEDS ORDERED: METOCLOPRAMIDE HCL INJECTION 10 MG/2 ML VIAL ONE (20:27)
[2020-10-20] MEDS ORDERED: FAMOTIDINE 20 MG/50 ML IVPB 20 MG/50 ML MG IVPB ONE ×2 (20:40→20:42)
[2020-10-20 23:06] LABS: EPI CELLS 33 /uL (0-25.1); HYALINE CASTS 5 /uL (0-3.1); PH,URINE >= 9.0 (5.0-8.0); URINE APPEARANCE CLOUDY; URINE BACTERIA 345 /uL (0-1359); URINE BILIRUBIN NEGATIVE (NEGATIVE); URINE COLOR YELLOW; URINE GLUCOSE (UA) NEGATIVE (NEGATIVE); URINE KETONE 4+ (NEGATIVE); URINE LEUK ESTERASE TRACE (NEGATIVE); URINE NITRITE NEGATIVE (NEGATIVE); URINE PROTEIN 1+ (NEGATIVE); URINE RBC 4 /uL (0-23.9); URINE WBC 8 /uL (0-25.8)
[2020-10-20 23:07] LABS: BASO % 0.2 % (0-2.0); EOS % 0.2 % (0-4.5); HEMATOCRIT 38.7 % (32.4-45.2); HEMOGLOBIN 12.9 GM/dL (10.7-15.3); LYMPH % 5.2 % (8-40); MCH 27.8 pg (25.7-33.7); MCHC 33.3 g/dl (32.0-36.0); MEAN CELL VOLUME 83.7 fl (80-96); MEAN PLT VOLUME 8.8 fl (7.5-11.1); MONO % 4.5 % (3.8-10.2); NEUT % 89.9 % (42.8-82.8); PLATELET COUNT 332 K/MM3 (134-434); RBC 4.63 M/mm3 (3.60-5.2); RDW 13.1 % (11.6-15.6); WHITE BLOOD COUNT 14.9 K/mm3 (4.0-10.0)
[2020-10-20 23:29] LABS: CHLORIDE 105 mmol/L (98-107); SODIUM 141 mmol/L (136-145)
[2020-10-20 23:33] LABS: CALCIUM 8.9 mg/dL (8.5-10.1); LIPASE 52 U/L (73-393)
[2020-10-20 23:34] LABS: ANION GAP 9 MMOL/L (8-16); CO2 27 mmol/L (21-32); GLUCOSE,RANDOM 87 mg/dL (74-106)
[2020-10-20 23:36] LABS: CREATININE 0.6 mg/dL (0.55-1.3); SGOT/AST 27 U/L (15-37); SGPT/ALT 37 U/L (13-61)
[2020-10-20 23:38] LABS: BILIRUBIN,TOTAL 0.8 mg/dL (0.2-1); TOT PROT 7.1 g/dl (6.4-8.2)
[2020-10-20 23:39] LABS: ALK PHOS 64 U/L (45-117)
== END 2020-10-21 01:10 | disposition home or self-care (01) ==
LOC: JER 19:05
PROC: 3E033GC Introduction of Other Therapeutic Substance into Peripheral Vein, Percutaneous Approach (ICD-10-PCS; principal; 2020-10-20)
PROC: 3E0337Z Introduction of Electrolytic and Water Balance Substance into Peripheral Vein, Percutaneous Approach (ICD-10-PCS; 2020-10-20)
PROC: 3E0337Z Introduction of Electrolytic and Water Balance Substance into Peripheral Vein, Percutaneous Approach (ICD-10-PCS; 2020-10-20)
DX: R11.2 Nausea with vomiting, unspecified (principal); K29.00 Acute gastritis without bleeding
CPT/HCPCS: 36415; 80053; 81003; 83690; 84484; 84703; 85025; 93005; 93010; 99285-25

== ENCOUNTER 2021-02-01 19:41 | Emergency (ER) | payer OTHER ==
[2021-02-01 19:47] VITALS: TEMP 97.3; BMI 27.9
[2021-02-01] MEDS ORDERED: ONDANSETRON 4 MG/2 ML VIAL IVPUSH ONE (19:51)
[2021-02-01] MEDS ORDERED: FOLIC ACID INJECTION - 1 MG, THIAMINE HCL 100 MG, MULTIVIT INJECTION ADULT 10 ML in SOD... IVPB ONE (19:51)
[2021-02-01] MEDS ORDERED: FAMOTIDINE 20 MG/50 ML IVPB 20 MG/50 ML MG IVPB ONE ×2 (20:08→20:13)
[2021-02-01] MEDS ORDERED: ACETAMINOPHEN 1000 MG/100 ML VIAL (NON FORMULARY) IVPB ONE (20:08)
[2021-02-01] MEDS ORDERED: SODIUM CHLORIDE 1,000 ML IV STA ×2 (20:09→23:10)
[2021-02-01] MEDS ORDERED: ONDANSETRON 4 MG/2 ML VIAL ONE (20:10)
[2021-02-01] MEDS ORDERED: ACETAMINOPHEN INJECTION 100 ML IVPB ONE (20:13)
[2021-02-01 20:48] LABS: BASO % 1.1 % (0-2.0); EOS % 1.2 % (0-4.5); HEMATOCRIT 38.8 % (32.4-45.2); HEMOGLOBIN 13.1 GM/dL (10.7-15.3); LYMPH % 16.6 % (8-40); MCH 28.5 pg (25.7-33.7); MCHC 33.8 g/dl (32.0-36.0); MEAN CELL VOLUME 84.1 fl (80-96); MEAN PLT VOLUME 8.4 fl (7.5-11.1); MONO % 5.2 % (3.8-10.2); NEUT % 75.9 % (42.8-82.8); PLATELET COUNT 298 K/MM3 (134-434); RBC 4.62 M/mm3 (3.60-5.2); RDW 13.2 % (11.6-15.6); WHITE BLOOD COUNT 14.9 K/mm3 (4.0-10.0)
[2021-02-01 21:09] LABS: ALBUMIN 3.7 g/dl (3.4-5.0); BLOOD UREA NITROGEN 6.1 mg/dL (7-18); CALCIUM 8.7 mg/dL (8.5-10.1)
[2021-02-01 21:13] LABS: CREATININE 0.6 mg/dL (0.55-1.3)
[2021-02-01 21:14] LABS: BILIRUBIN,TOTAL 0.3 mg/dL (0.2-1); TOT PROT 7.3 g/dl (6.4-8.2)
[2021-02-01 23:06] LABS: PH,URINE 8.5 (5.0-8.0); URINE APPEARANCE CLOUDY; URINE BILIRUBIN NEGATIVE (NEGATIVE); URINE COLOR YELLOW; URINE GLUCOSE (UA) NEGATIVE (NEGATIVE); URINE KETONE 2+ (NEGATIVE); URINE LEUK ESTERASE NEGATIVE (NEGATIVE); URINE NITRITE NEGATIVE (NEGATIVE); URINE PROTEIN NEGATIVE (NEGATIVE); URINE UROBILINOGEN 0.2 mg/dL (0.2-1.0)
[2021-02-01] MEDS ORDERED: METOCLOPRAMIDE HCL INJECTION 10 MG/2 ML VIAL IVPB ONE (23:17)
[2021-02-01] MEDS ORDERED: METOCLOPRAMIDE HCL INJECTION 10 MG/2 ML VIAL ONE (23:19)
[2021-02-02 00:12] VITALS: BP 124/84; PULSE 83
== END 2021-02-02 00:13 | disposition home or self-care (01) ==
LOC: JER 19:41
PROC: 3E033NZ Introduction of Analgesics, Hypnotics, Sedatives into Peripheral Vein, Percutaneous Approach (ICD-10-PCS; principal; 2021-02-01)
PROC: 3E033GC Introduction of Other Therapeutic Substance into Peripheral Vein, Percutaneous Approach (ICD-10-PCS; 2021-02-01)
PROC: 3E0337Z Introduction of Electrolytic and Water Balance Substance into Peripheral Vein, Percutaneous Approach (ICD-10-PCS; 2021-02-01)
PROC: 3E0337Z Introduction of Electrolytic and Water Balance Substance into Peripheral Vein, Percutaneous Approach (ICD-10-PCS; 2021-02-01)
DX: O21.1 Hyperemesis gravidarum with metabolic disturbance (principal); R11.2 Nausea with vomiting, unspecified; K29.00 Acute gastritis without bleeding
CPT/HCPCS: 36415; 76775-TC; 76801-TC; 80053; 81003; 84702; 85025; 87086; 99285-25; J0131

== ENCOUNTER 2021-08-10 01:55 | Inpatient (IN) | payer OTHER ==
[2021-08-10] MEDS ORDERED: IBUPROFEN 600 MG TABLET (FP) PO PRN (02:16)
[2021-08-10] MEDS ORDERED: METHYLERGONOVINE MALEATE 0.2 MG/1 ML AMP IM PRN (02:16)
[2021-08-10] MEDS ORDERED: WITCH HAZEL 50% (TUCKS) 40 PAD/JAR PAD TP PRN (02:16)
[2021-08-10] MEDS ORDERED: BENZOCAINE 20% 57 GM BOTTLE TP PRN (02:16)
[2021-08-10] MEDS ORDERED: BISACODYL 10 MG SUPP.RECT RC PRN (02:16)
[2021-08-10] MEDS ORDERED: ACETAMINOPHEN 325 MG TABLET (FP) PO PRN (02:16)
[2021-08-10] MEDS ORDERED: BENZOCAINE 28 GM HEMORRHOIDAL OINTMENT TP PRN (02:16)
[2021-08-10] MEDS ORDERED: OXYTOCIN 20 UNITS in 0.9% NS 20 UNIT/1,000 ML INFUS.BAG IV SCH (02:30)
[2021-08-10] MEDS ORDERED: OXYTOCIN 10 UNITS/ML VIAL IM ONE (02:44)
[2021-08-10 03:24] LABS: BASO % 0.7 % (0-2.0); EOS % 1.1 % (0-4.5); HEMATOCRIT 35.6 % (32.4-45.2); HEMOGLOBIN 11.8 GM/dL (10.7-15.3); LYMPH % 34.1 % (8-40); MCH 27.1 pg (25.7-33.7); MCHC 33.2 g/dl (32.0-36.0); MEAN CELL VOLUME 81.8 fl (80-96); MONO % 6.5 % (3.8-10.2); NEUT % 57.6 % (42.8-82.8); PLATELET COUNT 281 10^3/uL (134-434); RBC 4.36 M/mm3 (3.60-5.2); WHITE BLOOD COUNT 10.7 K/mm3 (4.0-10.0)
[2021-08-10 03:26] VITALS: BMI 28.3
[2021-08-10 03:32] LABS: INR 0.93 (0.83-1.09); PROTHROMBIN TIME (PATIENT) 10.9 SEC (9.7-13.0)
[2021-08-10 03:43] LABS: BLOOD UREA NITROGEN 8.7 mg/dL (7-18); CALCIUM 8.8 mg/dL (8.5-10.1)
[2021-08-10 03:47] LABS: CREATININE 0.7 mg/dL (0.55-1.3)
[2021-08-10] MEDS ORDERED: OXYTOCIN 20 UNITS in 0.9% NS 20 UNIT/1,000 ML INFUS.BAG IV ONE (04:11)
[2021-08-10 04:44] LABS: HIV INTERPRETATION NEGATIVE (NEGATIVE)
[2021-08-10 07:12] LABS: METHADONE, UR NEGATIVE (NEGATIVE); PHENCYCLIDINE,URINE NEGATIVE (NEGATIVE); URINE BENZODIAZEPINES NEGATIVE (NEGATIVE)
[2021-08-10 07:13] LABS: URINE BARBITURATES NEGATIVE (NEGATIVE)
[2021-08-10 07:17] LABS: COCAINE, UR NEGATIVE (NEGATIVE); OPIATES, URI NEGATIVE (NEGATIVE); URINE AMPHETAMINES NEGATIVE (NEGATIVE)
[2021-08-11 08:09] LABS: BASO % 0.7 % (0-2.0); EOS % 1.1 % (0-4.5); HEMATOCRIT 33.4 % (32.4-45.2); LYMPH % 18.9 % (8-40); MCH 26.6 pg (25.7-33.7); MCHC 32.8 g/dl (32.0-36.0); MEAN CELL VOLUME 81.1 fl (80-96); MEAN PLT VOLUME 8.4 fl (7.5-11.1); NEUT % 73.3 % (42.8-82.8); PLATELET COUNT 243 10^3/uL (134-434); RBC 4.11 M/mm3 (3.60-5.2); RDW 14.2 % (11.6-15.6); WHITE BLOOD COUNT 10.7 K/mm3 (4.0-10.0)
[2021-08-11] MEDS ORDERED: SENNOSIDES/DOCUSATE COMBO (SENNA PLUS) TABLET (UD) PO PRN (22:00)
[2021-08-12 11:25] VITALS: BP 101/71; PULSE 86; TEMP 98.4
== END 2021-08-12 12:00 | disposition home or self-care (01) | DRG 560 ==
LOC: JLDR 01:55 → J3W 04:36
PROVIDERS: ADMIT Obstetrics & Gynecology; ATTEND Obstetrics & Gynecology
PROC: 0HQ9XZZ Repair Perineum Skin, External Approach (ICD-10-PCS; principal; 2021-08-10)
PROC: 10E0XZZ Delivery of Products of Conception, External Approach (ICD-10-PCS; 2021-08-10)
DX: O70.0 First degree perineal laceration during delivery (principal); Z3A.39 39 weeks gestation of pregnancy; Z37.0 Single live birth
CPT/HCPCS: 36415; 59409; 80048; 80307; 85025; 85610; 85730; 86762; 86780; 86850; 86900; 86901; 87340; 87389; C9803; U0003; U0005

== ENCOUNTER 2021-12-26 22:23 | Emergency (ER) | payer OTHER ==
[2021-12-26 22:33] VITALS: TEMP 98; BMI 22.4
[2021-12-26] MEDS ORDERED: SODIUM CHLORIDE 0.9% 500 ML INFUS.BAG IV ONE (23:03)
[2021-12-26] MEDS ORDERED: FAMOTIDINE 20 MG/50 ML IVPB 20 MG/50 ML MG IVPB ONE ×2 (23:03→23:14)
[2021-12-26] MEDS ORDERED: ACETAMINOPHEN 1000 MG/100 ML BAG IVPB ONE (23:03)
[2021-12-26] MEDS ORDERED: ONDANSETRON 4 MG/2 ML VIAL IVPUSH ONE (23:05)
[2021-12-26] MEDS ORDERED: ACETAMINOPHEN INJECTION 100 ML IVPB ONE (23:13)
[2021-12-26] MEDS ORDERED: ONDANSETRON 4 MG/2 ML VIAL ONE (23:14)
[2021-12-26 23:54] LABS: BASO % 0.2 % (0-2.0); EOS % 0.5 % (0-4.5); HEMATOCRIT 39.6 % (32.4-45.2); HEMOGLOBIN 13.2 GM/dL (10.7-15.3); LYMPH % 9.2 % (8-40); MCH 25.9 pg (25.7-33.7); MCHC 33.3 g/dl (32.0-36.0); MEAN CELL VOLUME 77.9 fl (80-96); MEAN PLT VOLUME 7.8 fl (7.5-11.1); MONO % 5.4 % (3.8-10.2); NEUT % 84.7 % (42.8-82.8); PLATELET COUNT 392 10^3/uL (134-434); RBC 5.09 M/mm3 (3.60-5.2); RDW 14.4 % (11.6-15.6); WHITE BLOOD COUNT 12.4 K/mm3 (4.0-10.0)
[2021-12-27 00:10] LABS: CALCIUM 9.5 mg/dL (8.5-10.1)
[2021-12-27 00:11] LABS: ALBUMIN 4.4 g/dl (3.4-5.0); BLOOD UREA NITROGEN 11.5 mg/dL (7-18)
[2021-12-27 00:14] LABS: CREATININE 0.8 mg/dL (0.55-1.3); PHOSPHOROUS 3.1 mg/dL (2.5-4.9)
[2021-12-27 00:15] LABS: BILIRUBIN,TOTAL 0.6 mg/dL (0.2-1); TOT PROT 7.9 g/dl (6.4-8.2)
[2021-12-27 01:00] LABS: EPI CELLS 20 /uL (0-25.1); HYALINE CASTS 2 /uL (0-3.1); PH,URINE >= 9.0 (5.0-8.0); URINE APPEARANCE CLEAR; URINE BACTERIA 124 /uL (0-1359); URINE BILIRUBIN NEGATIVE (NEGATIVE); URINE COLOR YELLOW; URINE GLUCOSE (UA) NEGATIVE (NEGATIVE); URINE KETONE 2+ (NEGATIVE); URINE LEUK ESTERASE NEGATIVE (NEGATIVE); URINE NITRITE NEGATIVE (NEGATIVE); URINE PROTEIN 2+ (NEGATIVE); URINE RBC 2 /uL (0-23.9); URINE WBC 3 /uL (0-25.8)
[2021-12-27 02:16] VITALS: BP 100/53; PULSE 72
== END 2021-12-27 02:19 | disposition home or self-care (01) ==
LOC: JER 22:23
PROC: 3E033GC Introduction of Other Therapeutic Substance into Peripheral Vein, Percutaneous Approach (ICD-10-PCS; principal; 2021-12-26)
DX: R10.13 Epigastric pain (principal)
CPT/HCPCS: 36415; 80053; 81003; 83690; 83735; 84100; 84703; 85025; 87086; 99284-25

== ENCOUNTER 2024-12-20 07:49 | Emergency (ER) | payer OTHER ==
[2024-12-20 08:00] VITALS: BMI 22.8
[2024-12-20] MEDS ORDERED: METOCLOPRAMIDE HCL 10 MG TABLET (FP) PO ONE (08:22)
[2024-12-20] MEDS: METOCLOPRAMIDE HCL 10 MG TABLET (FP) PO ONE (08:28)
[2024-12-20 08:45] LABS: HEMATOCRIT 37.7 % (34.1-44.9); HEMOGLOBIN 12.6 g/dL (11.2-15.7); MCHC 33.4 g/dl (32.2-35.5); MEAN CELL VOLUME 81.4 fl (79.4-94.8); MEAN PLT VOLUME 10.1 fl (9.4-12.3); PLATELET COUNT 295 x10^3/uL (182-369); RDW 12.9 % (12.1-16.5)
[2024-12-20 08:48] LABS: URINE APPEARANCE CLEAR; URINE COLOR YELLOW
[2024-12-20 08:49] LABS: URINE BILIRUBIN NEGATIVE (NEGATIVE); URINE GLUCOSE (UA) NEGATIVE (NEGATIVE); URINE KETONE >=80 mg/dl (NEGATIVE)
[2024-12-20 08:50] LABS: URINE NITRITE NEGATIVE (NEGATIVE); URINE PROTEIN 1+ (NEGATIVE)
[2024-12-20 08:51] LABS: URINE LEUK ESTERASE 1+ (NEGATIVE)
[2024-12-20 09:09] LABS: POTASSIUM 3.7 mmol/L (3.5-5.1)
[2024-12-20 09:11] LABS: ALBUMIN 3.9 g/dl (3.4-5.0); BLOOD UREA NITROGEN 6.6 mg/dL (7-18); CALCIUM 9.2 mg/dL (8.5-10.1)
[2024-12-20 09:14] LABS: CREATININE 0.6 mg/dL (0.55-1.3)
[2024-12-20 09:16] LABS: BILIRUBIN,TOTAL 0.5 mg/dL (0.2-1); TOT PROT 7.4 g/dl (6.4-8.2)
[2024-12-20] MEDS ORDERED: ACETAMINOPHEN INJECTION 100 ML ONE (09:32)
[2024-12-20] MEDS ORDERED: METOCLOPRAMIDE HCL INJECTION 10 MG/2 ML VIAL ONE (09:32)
[2024-12-20] MEDS: METOCLOPRAMIDE HCL INJECTION 10 MG/2 ML VIAL IVPUSH ONE (09:39)
[2024-12-20] MEDS: SODIUM CHLORIDE 0.9% 500 ML INFUS.BAG IV ONE (09:39)
[2024-12-20] MEDS: DEXTROSE 5%-WATER 1000 ML INFUS.BAG IV ONE (09:54)
[2024-12-20] MEDS: ACETAMINOPHEN 1000 MG/100 ML BAG IVPB ONE (09:55)
[2024-12-20] MEDS: PYRIDOXINE HCL (B-6) 50 MG TABLET (FP) PO ONE (11:00)
[2024-12-20] MEDS: POLYETHYLENE GLYCOL (HEALTHYLAX) 3350 17 GM PACKET PO SCH (11:00)
[2024-12-20] MEDS: PYRIDOXINE HCL (B-6) 100 MG TABLET PO ONE (11:29)
[2024-12-20 12:54] VITALS: BP 100/58; PULSE 84; TEMP 98.6
[2024-12-20 12:59] VITALS: RESP 16
== END 2024-12-20 12:25 | disposition home or self-care (01) ==
LOC: JER 07:49
PROC: 3E033NZ Introduction of Analgesics, Hypnotics, Sedatives into Peripheral Vein, Percutaneous Approach (ICD-10-PCS; principal; 2024-12-20)
PROC: 3E033GC Introduction of Other Therapeutic Substance into Peripheral Vein, Percutaneous Approach (ICD-10-PCS; 2024-12-20)
DX: O21.9 Vomiting of pregnancy, unspecified (principal); O26.899 Other specified pregnancy related conditions, unspecified trimester; R10.12 Left upper quadrant pain; Z3A.08 8 weeks gestation of pregnancy
CPT/HCPCS: 36415; 80053; 81003; 84702; 85025; 86850; 86900; 86901; 87086; 99284-25; J0131